=== PATIENT | male | born 1935 | race Hispanic/Latino ===

== ENCOUNTER 2018-11-19 20:28 | Emergency (ER) | payer SELFPAY ==
[~2018-11-19] VITALS: Ht 152.4 cm; Wt 61.4 kg
--- OUTSIDE RECORDS SUMMARY | 2018-11-19 20:31 | XMS REPORT ---
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 Allergies, Adverse Reactions, Alerts Allergy Name Allergy Type Status Severity Reaction(s) Onset Date Inactive Date Treating Clinician Comments No Known Allergies DA Active U 2018-04-20 00:00:00 lisinopril DA Active U 2018-04-20 00:00:00 simvastatin DA Active U 2018-04-20 00:00:00 enalapril DA Active U 2018-04-20 00:00:00 No Known Allergies DA Active U 2018-04-10 00:00:00 Medications This patient has no known medications. Encounters Start Date/Time End Date/Time Encounter Type Admission Type Attending Clinicians Care Facility Care Department Encounter ID 2018-08-08 21:31:17 Inpatient [facility] [id number] 2018-08-08 15:30:09 Inpatient [facility] [id number] 2018-08-07 17:11:24 Inpatient [facility] [id number] 2018-08-06 13:08:50 Inpatient [facility] [id number] 2018-08-06 00:00:00 Inpatient [facility] [id number] 2018-08-03 06:29:39 Inpatient [facility] [id number] 2018-08-02 11:45:38 Inpatient [facility] [id number] 2018-08-01 19:54:43 Inpatient [facility] [id number] 2018-08-01 19:54:21 Inpatient [facility] [id number] 2018-08-01 19:53:58 Inpatient [facility] [id number] 2018-08-01 16:15:07 Inpatient [facility] [id number] 2018-08-01 14:59:13 Inpatient [facility] [id number] 2018-08-01 14:27:18 Inpatient [facility] [id number] 2018-07-31 16:33:56 Inpatient [facility] [id number] 2018-07-31 11:50:26 Inpatient [facility] [id number] 2018-07-30 16:15:21 Inpatient [facility] [id number] 2018-07-26 10:12:47 Inpatient [facility] [id number] 2018-07-25 00:00:00 Inpatient [facility] [id number] 2019-01-11 00:00:00 2019-01-11 00:00:00 Emergency [facility] [id number] 2018-12-27 00:00:00 2018-12-27 00:00:00 Outpatient [facility] [id number] 2018-12-27 00:00:00 2018-12-27 00:00:00 Outpatient [facility] [id number] 2018-12-06 00:00:00 2018-12-06 00:00:00 Outpatient [facility] [id number] 2018-11-29 00:00:00 2018-11-29 00:00:00 Outpatient [facility] [id number] 2018-11-15 14:29:21 2018-11-15 14:29:21 Outpatient [facility] [id number] 2018-11-15 13:32:07 2018-11-15 13:32:07 Outpatient [facility] [id number] 2018-11-15 06:37:37 2018-11-15 06:37:37 Emergency [facility] [id number] 2018-11-13 06:19:23 2018-11-13 06:19:23 Emergency [facility] [id number] 2018-11-12 00:00:00 2018-11-12 00:00:00 Outpatient [facility] [id number] 2018-11-09 06:42:52 2018-11-09 06:42:52 Emergency [facility] [id number] 2018-11-09 00:00:00 2018-11-09 00:00:00 Outpatient [facility] [id number] 2018-11-06 06:21:58 2018-11-06 06:21:58 Emergency [facility] MED [id number] 2018-11-02 05:56:37 2018-11-02 05:56:37 Emergency [facility] MED [id number] 2018-10-30 06:46:25 2018-10-30 06:46:25 Emergency [facility] [id number] 2018-10-27 16:17:12 2018-10-27 16:17:12 Emergency [facility] [id number] 2018-10-27 08:47:11 2018-10-27 08:47:11 Emergency [facility] [id number] 2018-10-26 07:03:01 2018-10-26 07:03:01 Emergency [facility] [id number] 2018-10-23 06:20:35 2018-10-23 06:20:35 Emergency [facility] [id number] 2018-10-19 06:34:18 2018-10-19 06:34:18 Emergency [facility] [id number] 2018-10-16 06:09:21 2018-10-16 06:09:21 Emergency [facility] [id number] 2018-10-12 06:05:35 2018-10-12 06:05:35 Emergency [facility] [id number] 2018-10-11 00:00:00 2018-10-11 00:00:00 Outpatient [facility] [id number] 2018-10-09 06:37:35 2018-10-09 06:37:35 Emergency [facility] [id number] 2018-10-05 06:54:05 2018-10-05 06:54:05 Emergency [facility] [id number] 2018-10-02 07:00:17 2018-10-02 07:00:17 Emergency [facility] [id number] 2018-09-28 06:00:57 2018-09-28 06:00:57 Emergency [facility] [id number] 2018-09-28 00:00:00 2018-09-28 00:00:00 Outpatient [facility] [id number] 2018-09-27 00:00:00 2018-09-27 00:00:00 Outpatient [facility] [id number] 2018-09-25 05:49:27 2018-09-25 05:49:27 Emergency [facility] [id number] 2018-09-25 00:00:00 2018-09-25 00:00:00 Outpatient [facility] [id number] 2018-09-21 06:06:47 2018-09-21 06:06:47 Emergency [facility] [id number] 2018-09-18 06:37:55 2018-09-18 06:37:55 Emergency [facility] [id number] 2018-09-14 06:05:49 2018-09-14 06:05:49 Emergency [facility] [id number] 2018-09-11 06:20:16 2018-09-11 06:20:16 Emergency [facility] [id number] 2018-09-08 09:24:52 2018-09-08 09:24:52 Emergency [facility] [id number] 2018-09-08 08:17:35 2018-09-08 08:17:35 Outpatient [facility] [id number] 2018-09-06 00:00:00 2018-09-06 00:00:00 Outpatient [facility] [id number] 2018-09-06 00:00:00 2018-09-06 00:00:00 Outpatient [facility] [id number] 2018-09-05 10:26:04 2018-09-05 10:26:04 Outpatient [facility] [id number] 2018-09-03 06:58:28 2018-09-03 06:58:28 Emergency [facility] [id number] 2018-08-30 17:02:06 2018-08-30 17:02:06 Emergency [facility] [id number] 2018-08-30 14:13:02 2018-08-30 14:13:02 Emergency [facility] [id number] 2018-08-30 07:17:47 2018-08-30 07:17:47 Emergency [facility] [id number] 2018-08-30 00:00:00 2018-08-30 00:00:00 Outpatient [facility] [id number] 2018-08-27 05:32:00 2018-08-27 05:32:00 Emergency [facility] [id number] 2018-08-27 00:00:00 2018-08-27 00:00:00 Outpatient [facility] [id number] 2018-08-25 07:22:51 2018-08-25 07:22:51 Emergency [facility] [id number] 2018-08-24 06:06:21 2018-08-24 06:06:21 Emergency [facility] [id number] 2018-08-21 02:54:52 2018-08-21 02:54:52 Emergency [facility] [id number] 2018-08-21 02:44:53 2018-08-21 02:44:53 Emergency [facility] [id number] 2018-08-20 21:55:21 2018-08-20 21:55:21 Outpatient [facility] [id number] 2018-08-20 06:53:39 2018-08-20 06:53:39 Emergency [facility] [id number] 2018-08-17 06:11:34 2018-08-17 06:11:34 Emergency [facility] [id number] 2018-08-15 06:34:57 2018-08-15 06:34:57 Emergency [facility] [id number] 2018-08-13 11:16:12 2018-08-13 11:16:12 Emergency [facility] [id number] 2018-08-13 06:51:38 2018-08-13 06:51:38 Emergency [facility] [id number] 2018-08-03 00:00:00 2018-08-03 00:00:00 Outpatient [facility] [id number] 2018-08-03 00:00:00 2018-08-03 00:00:00 Outpatient [facility] [id number] 2018-08-03 00:00:00 2018-08-03 00:00:00 Outpatient [facility] [id number] 2018-08-02 00:00:00 2018-08-02 00:00:00 Outpatient [facility] [id number] 2018-07-26 00:00:00 2018-07-26 00:00:00 Outpatient [facility] [id number] 2018-07-25 14:07:19 2018-07-25 14:07:19 Emergency [facility] [id number] 2018-07-25 13:05:23 2018-07-25 13:05:23 Emergency [facility] [id number] 2018-07-25 11:48:45 2018-07-25 11:48:45 Inpatient [facility] [id number] 2018-07-25 10:01:14 2018-07-25 10:01:14 Outpatient [facility] [id number] 2018-07-25 00:00:00 2018-07-25 00:00:00 Outpatient [facility] [id number] 2018-07-20 08:41:38 2018-07-20 08:41:38 Outpatient [facility] [id number] 2018-07-19 15:03:51 2018-07-19 15:03:51 Outpatient [facility] [id number] 2018-07-05 15:56:44 2018-07-05 15:56:44 Outpatient [facility] [id number] 2018-07-04 00:00:00 2018-07-04 00:00:00 Outpatient [facility] [id number] 2018-07-03 00:00:00 2018-07-03 00:00:00 Outpatient [facility] [id number] 2018-07-02 07:30:34 2018-07-02 07:30:34 Outpatient [facility] [id number] 2018-06-29 14:53:55 2018-06-29 14:53:55 Outpatient [facility] [id number] 2018-06-28 08:26:56 2018-06-28 08:26:56 Outpatient [facility] [id number] 2018-06-25 00:00:00 2018-06-25 00:00:00 Outpatient [facility] [id number] 2018-06-18 00:00:00 2018-06-18 00:00:00 Outpatient [facility] [id number] 2018-06-12 08:12:26 2018-06-12 08:12:26 Outpatient [facility] [id number] 2018-06-12 00:00:00 2018-06-12 00:00:00 Outpatient [facility] [id number] 2018-06-08 00:00:00 2018-06-08 00:00:00 Outpatient [facility] [id number] 2018-06-05 08:42:21 2018-06-05 08:42:21 Outpatient [facility] [id number] 2018-06-04 14:12:32 2018-06-04 14:12:32 Outpatient [facility] [id number] 2018-05-28 14:08:13 2018-05-28 14:08:13 Outpatient [facility] [id number] 2018-05-28 13:03:59 2018-05-28 13:03:59 Outpatient [facility] [id number] 2018-05-28 00:00:00 2018-05-28 00:00:00 Outpatient [facility] [id number] 2018-05-14 00:00:00 2018-05-14 00:00:00 Outpatient [facility] [id number] 2018-05-02 14:13:27 2018-05-02 14:13:27 Outpatient [facility] [id number] 2018-05-02 00:00:00 2018-05-02 00:00:00 Outpatient [facility] [id number] 2018-04-26 00:00:00 2018-04-26 00:00:00 Outpatient [facility] [id number] 2018-04-20 10:55:46 2018-04-20 10:55:46 Outpatient [facility] [id number] 2018-04-19 00:00:00 2018-04-19 00:00:00 Outpatient [facility] [id number] 2018-04-15 21:56:37 2018-04-15 21:56:37 Emergency [facility] [id number] 2018-04-15 20:46:43 2018-04-15 20:46:43 Emergency [facility] [id number] 2018-04-15 19:06:10 2018-04-15 19:06:10 Inpatient [facility] [id number] 2018-04-15 00:00:00 2018-04-15 00:00:00 Emergency [facility] [id number] 2018-04-11 00:00:00 2018-04-11 00:00:00 Outpatient [facility] [id number] 2018-02-15 00:00:00 2018-02-15 00:00:00 Outpatient [facility] [id number] 2018-02-14 00:00:00 2018-02-14 00:00:00 Outpatient [facility] [id number] 2018-01-31 08:19:37 2018-01-31 08:19:37 Outpatient [facility] [id number] 2018-01-26 00:00:00 2018-01-26 00:00:00 Outpatient [facility] [id number] 2018-01-19 13:17:12 2018-01-19 13:17:12 Outpatient [facility] [id number] 2018-01-10 10:21:22 2018-01-10 10:21:22 Outpatient [facility] [id number] 2017-12-29 15:16:09 2017-12-29 15:16:09 Outpatient [facility] [id number] 2017-12-25 00:00:00 2017-12-25 00:00:00 Outpatient [facility] [id number] 2017-12-22 09:20:20 2017-12-22 09:20:20 Outpatient [facility] [id number] 2017-12-06 16:40:02 2017-12-06 16:40:02 Outpatient [facility] [id number] 2017-12-06 14:59:01 2017-12-06 14:59:01 Outpatient [facility] [id number] 2017-11-22 11:16:32 2017-11-22 11:16:32 Outpatient [facility] [id number] 2017-11-22 10:08:01 2017-11-22 10:08:01 Outpatient [facility] [id number] 2017-11-07 13:11:48 2017-11-07 13:11:48 Outpatient [facility] [id number] 2017-11-07 11:47:55 2017-11-07 11:47:55 Outpatient [facility] [id number] 2017-11-02 14:26:23 2017-11-02 14:26:23 Outpatient [facility] [id number] 2017-11-02 13:00:00 2017-11-02 13:00:00 Outpatient [facility] [id number] 2017-10-13 00:00:00 2017-10-13 00:00:00 Outpatient [facility] [id number] 2017-10-05 09:24:28 2017-10-05 09:24:28 Outpatient [facility] [id number] 2017-09-22 10:12:13 2017-09-22 10:12:13 Outpatient [facility] [id number] 2017-09-19 00:00:00 2017-09-19 00:00:00 Outpatient [facility] [id number] 2017-08-25 08:53:25 2017-08-25 08:53:25 Outpatient [facility] [id number] 2017-08-25 00:00:00 2017-08-25 00:00:00 Outpatient [facility] [id number] 2017-08-11 14:44:19 2017-08-11 14:44:19 Outpatient [facility] [id number] 2017-08-11 00:00:00 2017-08-11 00:00:00 Outpatient [facility] [id number] 2017-08-08 00:00:00 2017-08-08 00:00:00 Outpatient [facility] [id number] 2017-07-28 10:21:12 2017-07-28 10:21:12 Outpatient [facility] [id number] 2017-07-24 00:00:00 2017-07-24 00:00:00 Outpatient [facility] [id number] 2017-07-17 00:00:00 2017-07-17 00:00:00 Outpatient [facility] [id number] 2017-07-12 00:00:00 2017-07-12 00:00:00 Outpatient [facility] [id number] 2017-06-15 12:24:59 2017-06-15 12:24:59 Outpatient [facility] [id number] 2017-06-15 11:56:02 2017-06-15 11:56:02 Outpatient [facility] [id number] 2017-06-14 16:01:42 2017-06-14 16:01:42 Outpatient [facility] [id number] 2017-06-14 14:55:42 2017-06-14 14:55:42 Outpatient [facility] [id number] 2017-05-19 10:46:28 2017-05-19 10:46:28 Outpatient [facility] [id number] 2017-05-17 09:29:10 2017-05-17 09:29:10 Outpatient [facility] [id number] 2017-05-17 09:03:07 2017-05-17 09:03:07 Outpatient [facility] [id number] 2017-05-17 00:00:00 2017-05-17 00:00:00 Outpatient [facility] [id number] 2017-05-16 15:36:26 2017-05-16 15:36:26 Outpatient [facility] [id number] 2017-05-05 00:00:00 2017-05-05 00:00:00 Outpatient [facility] [id number] 2017-03-31 15:03:33 2017-03-31 15:03:33 Outpatient [facility] [id number] 2017-01-12 09:30:19 2017-01-12 09:30:19 Outpatient [facility] [id number]
[2018-11-19 21:19] LABS: BASOPHILS % 0.6 % (0.0-1.0); EOSINOPHILS % 29.1 % (0.0-6.0); HEMATOCRIT 28.5 % (38.2-49.6); LYMPHOCYTES # (AUTO) 0.7 (1.0-3.2); LYMPHOCYTES % 10.7 % (18.0-39.1); MEAN CORPUSCULAR HEMOGLOBIN 33.4 pg (28-32); MEAN CORPUSCULAR HGB CONC 35.1 g/dL (31-35); MEAN CORPUSCULAR VOLUME 95.3 fL (81-99); MONOCYTES # (AUTO) 0.5 (0.2-0.8); MONOCYTES % 7.3 % (4.4-11.3); NEUTROPHILS # (AUTO) 3.6 (2.1-6.9); PLATELET COUNT 103 x10e3/uL (140-360); RED CELL DISTRIBUTION WIDTH 13.5 % (11.7-14.4)
[2018-11-19 21:25] LABS: RED BLOOD COUNT 2.99 x10e6/uL (4.3-5.7)
[2018-11-19 21:29] LABS: INR 0.95; PROTHROMBIN TIME 13.2 seconds (11.9-14.5)
[2018-11-19 21:30] LABS: PARTIAL THROMBOPLASTIN TIME 40.3 seconds (23.8-35.5)
[2018-11-19 21:41] LABS: ALBUMIN/GLOBULIN RATIO 0.9 (0.8-2.0); ANION GAP 13.4 mmol/L (8-16); CALCIUM 8.2 mg/dL (8.4-10.2); CREATININE, SERUM 5.7 mg/dL (0.72-1.25); POTASSIUM 4.4 mmol/L (3.5-5.1)
--- NOTE | 2018-11-19 22:50 | Diagnostic Imaging Report ---
Examination: Single AP view of the chest. COMPARISON: None. INDICATION: Shortness of breath DISCUSSION: Lines/tubes: Dialysis catheter. Lungs: Central pulmonary venous congestion. Pleura: There is no pleural effusion or pneumothorax. Heart and mediastinum: The heart and the mediastinum are unremarkable. Bones and soft tissues: No acute bony abnormalities. IMPRESSION: Central pulmonary venous congestion. Signed by: Dr. Joseph Olsen M.D. on 11/19/2018 10:47 PM
--- NOTE | 2018-11-19 23:15 | NUR ---
REPORT GIVEN TO ROSALEE CABAN.
[2018-11-20 00:20] LABS: CLARITY,URINE CLEAR (CLEAR); COLOR,URINE YELLOW (YELLOW)
[2018-11-20 00:21] LABS: BILIRUBIN,URINE NEGATIVE (NEGATIVE); KETONES,URINE NEGATIVE (NEGATIVE); LEUKOCYTE ESTERASE ,URINE NEGATIVE (NEGATIVE); NITRITE,URINE NEGATIVE (NEGATIVE); PROTEIN,URINE DIPSTICK 3+ (NEGATIVE); URINE UROBILINOGEN 0.2 mg/dL (0.2 - 1)
[2018-11-20 00:29] LABS: BACTERIA,URINE FEW /HPF; EPITHELIAL CELLS,URINE FEW /LPF; RBC,URINE 21-50 /HPF (0-5)
[2018-11-20 00:53] VITALS: BP 184/86
== END 2018-11-20 00:54 | disposition home or self-care (01) ==
LOC: ER 20:28
DX: R53.1 Weakness (principal); I12.0 Hypertensive chronic kidney disease with stage 5 chronic kidney disease or end stage renal disease; E11.22 Type 2 diabetes mellitus with diabetic chronic kidney disease; N18.6 End stage renal disease; Z99.2 Dependence on renal dialysis; Z86.73 Personal history of transient ischemic attack (TIA), and cerebral infarction without residual deficits
CPT/HCPCS: 36415; 71045; 80053; 81001; 85025; 85610; 85730; 99284